=== PATIENT | male | born 1970 | race African-American/Black ===

== ENCOUNTER 2024-02-02 12:32 | Emergency (ER) | payer MEDICAID ==
[~2024-02-02] VITALS: Ht 180.3 cm; Wt 98.6 kg
[2024-02-02 12:39] VITALS: TEMP 98.1
[2024-02-02] MEDS ORDERED: POLYOS OU (14:29)
[2024-02-02 14:40] VITALS: BP 123/83; PULSE 77; RESP 17
== END 2024-02-02 14:42 | disposition home or self-care (01) ==
LOC: EMS 12:32
DX: H10.89 Other conjunctivitis (principal)
CPT/HCPCS: 99283